=== PATIENT | female | born 1955 | race Caucasian/White ===

== ENCOUNTER → 2018-01-27 | Outpatient (CLI) | payer OTHER ==
--- NOTE | 2018-01-27 15:43 | XR ---
EXAMINATION TYPE: XR shoulder complete RT DATE OF EXAM: 01/27/2018 COMPARISON: NONE HISTORY: Pain TECHNIQUE: Three views are submitted. FINDINGS: The osseous structures are intact. There is no acute fracture or dislocation. Arthropathy of the AC joint. Diffuse osteopenia. IMPRESSION: 1. AC joint arthropathy correlate for chronic rotator cuff disease. If there is concern for underlyin g metastasis correlate with bone scan.
== END | disposition home or self-care (01) ==
LOC: RADXRMAIN 15:24
PROVIDERS: ATTEND Internal Medicine
DX: M19.011 Primary osteoarthritis, right shoulder (principal)

== ENCOUNTER → 2018-10-10 | Outpatient (CLI) | payer OTHER ==
--- NOTE | 2018-10-10 15:40 | XR ---
EXAMINATION TYPE: XR chest 2V DATE OF EXAM: 10/10/2018 COMPARISON: Prior chest x-ray 02/17/2014 HISTORY: Cough TECHNIQUE: Frontal and lateral views of the chest are obtained. FINDINGS: Prominent lung volume could be indicative of underlying COPD. There is bronchial wall thick ening. Flattening the hemidiaphragms is noted. There is no pleural effusion or pneumothorax seen. The re is some thickening along the fissure noted on the lateral exam, there is some blunting the costoph renic angle on the right. The cardiac silhouette size is within normal limits. The osseous structur es are intact. IMPRESSION: Findings suspicious for right-sided pneumonia, possibly upper or middle lobe.
== END | disposition home or self-care (01) ==
LOC: RADXRMAIN 11:38
PROVIDERS: ATTEND Internal Medicine
DX: R05 Cough (principal); R50.9 Fever, unspecified
CPT/HCPCS: 71046

== ENCOUNTER → 2018-10-20 | Outpatient (CLI) | payer OTHER ==
--- NOTE | 2018-10-20 13:22 | XR ---
EXAMINATION TYPE: XR chest 2V DATE OF EXAM: 10/20/2018 COMPARISON: 10/10/2018 TECHNIQUE: PA and lateral views submitted. HISTORY: Follow-up pneumonia FINDINGS: There is persistent blunting the right costophrenic angle with subsegmental consolidation. Biapical p leural thickening. Atherosclerotic change aorta. Diffuse osteopenia and arthropathy of the shoulders. No overt failure. Hyperinflation is compatible COPD. IMPRESSION: 1. COPD with probable chronic interstitial lung disease. Right lower lobe atelectasis or infiltrate w ith tiny effusion or pleural thickening is stable.
== END | disposition home or self-care (01) ==
LOC: RADXRMAIN 12:28
PROVIDERS: ATTEND Internal Medicine
DX: J44.9 Chronic obstructive pulmonary disease, unspecified (principal)
CPT/HCPCS: 71046

== ENCOUNTER → 2020-12-18 | Outpatient (CLI) | payer MEDICARE, OTHER ==
--- NOTE | 2020-12-18 14:01 | XR ---
EXAMINATION TYPE: XR chest 2V DATE OF EXAM: 12/18/2020 COMPARISON: Chest x-ray 10/20/2018 HISTORY: Cough and congestion in the chest TECHNIQUE: Frontal and lateral views of the chest are obtained. FINDINGS: There is abnormal attenuation at the right lung base which is developed in the interval, n o pleural effusion or pneumothorax evident. The cardiac silhouette size is within normal limits. Pro minent lung volumes are suggestive of underlying COPD. The osseous structures are intact, there is a spinal curvature which may be positional. Vertebral clips present in the upper abdomen. IMPRESSION: Correlate for 8 lower lobe pneumonia for follow-up to resolution.
== END | disposition home or self-care (01) ==
LOC: RADXRMAIN 12:39
PROVIDERS: ATTEND Internal Medicine
DX: R05.9 Cough, unspecified (principal)
CPT/HCPCS: 71046

== ENCOUNTER → 2021-01-05 | Outpatient (CLI) | payer MEDICARE, OTHER ==
--- NOTE | 2021-01-06 11:16 | XR ---
EXAMINATION TYPE: XR chest 2V DATE OF EXAM: 01/05/2021 COMPARISON: Chest x-ray 12/18/2020 HISTORY: Cough TECHNIQUE: Frontal and lateral views of the chest are obtained. FINDINGS: Abnormal density at the right lung base is noted, there is tenting of the right hemidiaphr agm. No evident pneumothorax. Cardiac mediastinal silhouette is stable. There is a spinal curvature. Aorta is dense. IMPRESSION: Correlate for pneumonia similar to prior exam, follow-up to resolution.
== END | disposition home or self-care (01) ==
LOC: RADXRMAIN 14:54
PROVIDERS: ATTEND Internal Medicine
DX: R05.9 Cough, unspecified (principal)
CPT/HCPCS: 71046

== ENCOUNTER → 2021-01-21 | Outpatient (CLI) | payer MEDICARE, OTHER ==
[2021-01-21 17:51] LABS: African American GFR (CKD) >90 (>60 ml/min/1.73 sqM); Blood Urea Nitrogen 11 mg/dL (7-17); Non-African American GFR(CKD) >90 (>60 ml/min/1.73 sqM)
--- NOTE | 2021-01-22 07:14 | CT ---
EXAMINATION TYPE: CT chest w con DATE OF EXAM: 01/21/2021 COMPARISON: Chest x-ray January 05, 2021 and older x-rays HISTORY: Abnormal findings on xray CT DLP: 266.10 mGycm. Automated Exposure Control for Dose Reduction was Utilized. TECHNIQUE: CT scan of the thorax is performed following with IV Contrast, patient injected with 100 mL of Isovue 300. FINDINGS: LUNGS: Corresponding to x-ray there is right basilar volume loss with irregular consolidation favorin g scarring measuring approximately 4.5 x 2.2 cm involving portions of the right middle lobe and lesse r degree right lower lobe. Smaller 13 x 6 mm scarlike opacity are less likely spiculated nodule poste rior inferior right upper lobe sagittal image 23. Some additional mild parenchymal scarring throughou t right lung posterior right upper lobe sagittal image 30 as well as axial image 16 where there is ti ny nodular scarring suspected. Background mild underlying emphysematous change. No pleural effusion o r pneumothorax seen bilaterally. MEDIASTINUM: There is borderline enlarged 2.0 x 1.0 cm pericarinal lymph node axial image 20. No ca rdiomegaly or pericardial effusion is seen. Moderate peripheral plaque in the arch extends into bran ch vessels. Significant stenosis greater than 50% in the left subclavian artery is identified coronal image 45 and axial image 9. Coronary artery calcifications present which is noted marker for underly ing coronary artery disease. OTHER: Cholecystectomy clips. Moderate mixed plaque in aorta extends into branch vessels. Underlying scoliosis. IMPRESSION: 1. Corresponding to x-ray irregular consolidation with right-sided volume loss new from 2019 studies favors postinflammatory scarring. Additional smaller areas of scarring throughout the right lung are thought present. Consider PET/CT to confirm given new finding from 2019 to rule out subtle underlying hypermetabolic nodule and assess borderline thoracic lymph node. 2. Moderate atherosclerotic changes with most prominent plaque in the left subclavian artery causing significant stenosis greater than 50%. Advise endovascular surgical referral.
== END | disposition home or self-care (01) ==
LOC: RADCTMAIN 17:01
PROVIDERS: ATTEND Internal Medicine
DX: R91.8 Other nonspecific abnormal finding of lung field (principal)
CPT/HCPCS: 82565; 84520; 71260; 36415; Q9967

== ENCOUNTER → 2022-12-22 | Outpatient (CLI) | payer MEDICARE, OTHER ==
--- NOTE | 2022-12-22 14:18 | XR ---
EXAMINATION TYPE: XR chest 2V DATE OF EXAM: 12/22/2022 2:02 PM CLINICAL INDICATION:Female, 67 years old with history of R05.9 COUGH; COMPARISON: Chest radiographs from 01/05/2021 TECHNIQUE: XR chest 2V Frontal and lateral views of the chest. FINDINGS: Lungs/Pleura: There is flattening of the diaphragm with increased lucency of the lungs. No evidence o f pneumothorax, pleural effusion or focal consolidation. Pulmonary vascularity: Unremarkable. Heart/mediastinum: Cardiomediastinal silhouette is unremarkable. Atherosclerotic calcifications are seen in the aorta. Musculoskeletal: No acute osseous pathology. IMPRESSION: 1. No acute cardiopulmonary disease process. 2. COPD changes.
== END | disposition home or self-care (01) ==
LOC: RADXRMAIN 13:42
PROVIDERS: ATTEND Internal Medicine
DX: J44.9 Chronic obstructive pulmonary disease, unspecified (principal); R05.9 Cough, unspecified
CPT/HCPCS: 71046